=== PATIENT | female | born 1980 | race Caucasian/White ===

== ENCOUNTER → 2023-10-13 17:31 | Outpatient (REF) | payer OTHER, SELFPAY | LOC: RAD 17:31 | PROVIDERS: ATTENDING PHYSICIAN Family Medicine; FAMILY PHYSICIAN Physician Assistant | DX: K80.20 Calculus of gallbladder without cholecystitis without obstruction (principal) | CPT/HCPCS: 76536 ==

== ENCOUNTER → 2024-12-07 17:43 | Outpatient (REF) | payer OTHER, SELFPAY | LOC: WDC 17:43 | PROVIDERS: ATTENDING PHYSICIAN Family Medicine | DX: Z12.31 Encounter for screening mammogram for malignant neoplasm of breast (principal) | CPT/HCPCS: 77063; 77067 ==